=== PATIENT | female | born 1985 | race Caucasian/White ===

== ENCOUNTER 2021-09-03 09:34 | Observation (INO) ==
[2021-09-03] MEDS ORDERED: Isovue-370 500 ML BOTTLE IVP ONE (10:51)
[2021-09-03] MEDS ORDERED: Ondansetron 4 MG/2 ML VIAL IVP ONE (11:09)
[2021-09-03] MEDS ORDERED: GI Cocktail 40 ML EACH PO ONE (11:09)
[2021-09-03] MEDS ORDERED: 0.9 % Sodium Chloride 1,000 ML IVC ONE (11:09)
[2021-09-03 12:07] LABS: Basophils # 0.1 K/mcL (0.0-0.2); Basophils % 0.6 %; Eosinophils # 0.4 K/mcL (0.0-0.6); Eosinophils % 2.4 %; Hematocrit 45.7 % (35.3-44.9); Hemoglobin 15.1 g/dL (11.5-15.4); Immature Granulocytes % 0.3 % (0-4); Lymphocytes # 2.6 K/mcL (0.6-4.6); Lymphocytes % 16.3 %; Mean Corpuscular Hemoglobin 29.2 pg (28.0-33.3); Mean Corpuscular Volume 88.4 fL (83.0-100.0); Mean Platelet Volume 10.9 fL (9.4-12.4); Monocytes % 6.1 %; Neutrophils # 11.9 K/mcL (1.6-8.9); Platelet Count 341 K/mcL (140-400); Red Blood Count 5.17 M/mcL (3.82-4.97); Red Cell Distribution Width 13.6 % (11.5-14.5); Segmented Neutrophils % 74.3 %
[2021-09-03 12:21] LABS: Alanine Aminotransferase 9 Units/L (7-52); Albumin 4.7 g/dL (3.5-5.7); Albumin/Globulin Ratio 1.3 (1.1-2.2); Alkaline Phosphatase 64 Units/L (34-104); Amylase 63 Units/L (29-103); Aspartate Amino Transferase 13 Units/L (13-39); BUN/Creatinine Ratio 26 (6-26); Bilirubin,Indirect 0.3 mg/dL (0.0-1.0); Bilirubin,Total 0.3 mg/dL (0.3-1.0); Blood Urea Nitrogen 17 mg/dL (6-20); Calcium 10.5 mg/dL (8.6-10.3); Carbon Dioxide 28 mEq/L (23-29); Chloride 103 mEq/L (98-107); Globulin 3.6 g/dL (2.4-3.5); Glucose 85 mg/dL (70-105); Lipase 48 Units/L (11-82); Osmolality,Calculated 289 (280-300); Sodium 139 mEq/L (136-145); Total Protein 8.3 g/dL (6.4-8.9); eGFR For African Americans > 60 (> 60); eGFR For Non-African Americans > 60 (> 60)
[2021-09-03 12:47] LABS: Bilirubin,Urine Negative (Negative); Blood,Urine Negative (Negative); Clarity,Urine Clear (Clear); Color,Urine Light-Yellow (Yellow); Glucose,Urine (UA) Normal (Normal); Ketones,Urine Negative (Negative); Leukocyte Esterase,Urine Negative (Negative); Nitrite,Urine Negative (Negative); Protein,Urine Trace mg/dL (Neg-Trace); Specific Gravity,Urine > 1.030 (1.010-1.025); Urobilinogen,Urine Normal (Normal)
[2021-09-03] MEDS ORDERED: *HR* FentaNYL (PF) 100 MCG/2 ML VIAL IVP ONE (12:53)
[2021-09-03] MEDS ORDERED: *HR* OxyCODONE/APAP 5/325 TABLET PO PRN (16:17)
[2021-09-03] MEDS ORDERED: Ketorolac 30 MG/ML VIAL IVP PRN (16:17)
[2021-09-03] MEDS ORDERED: Ondansetron 4 MG/2 ML VIAL IVP PRN (16:17)
[2021-09-03] MEDS: 0.9 % Sodium Chloride 1,000 ML IVC SCH (20:25)
[2021-09-03] MEDS: cefOXitin 2,000 MG in 0.9 % Sodium Chloride 20 ML IVP SCH ×2 (20:25→22:13)
[2021-09-04] MEDS ORDERED: cefOXitin 2,000 MG in 0.9 % Sodium Chloride 20 ML IVP SCH ×3 (04:00→20:00)
[2021-09-04] MEDS: cefOXitin 2,000 MG in 0.9 % Sodium Chloride 20 ML IVP SCH ×3 (04:07→13:14)
[2021-09-04 05:26] LABS: Basophils # 0.1 K/mcL (0.0-0.2); Basophils % 0.9 %; Eosinophils # 0.4 K/mcL (0.0-0.6); Eosinophils % 5.5 %; Hematocrit 35.3 % (35.3-44.9); Hemoglobin 11.6 g/dL (11.5-15.4); Immature Granulocytes % 0.1 % (0-4); Lymphocytes # 2.9 K/mcL (0.6-4.6); Lymphocytes % 36.1 %; Mean Corpuscular HGB Conc 32.9 g/dL (31.6-35.5); Mean Corpuscular Hemoglobin 29.4 pg (28.0-33.3); Mean Corpuscular Volume 89.6 fL (83.0-100.0); Mean Platelet Volume 11.1 fL (9.4-12.4); Monocytes # 0.6 K/mcL (0.0-1.3); Monocytes % 7.9 %; Neutrophils # 3.9 K/mcL (1.6-8.9); Platelet Count 259 K/mcL (140-400); Red Blood Count 3.94 M/mcL (3.82-4.97); Red Cell Distribution Width 13.6 % (11.5-14.5); Segmented Neutrophils % 49.5 %; White Blood Count 7.9 K/mcL (4.3-11.1)
[2021-09-04 05:45] LABS: Albumin 3.6 g/dL (3.5-5.7); Albumin/Globulin Ratio 1.5 (1.1-2.2); Bilirubin,Direct 0.1 mg/dL (0.0-0.2); Bilirubin,Indirect 0.6 mg/dL (0.0-1.0); Bilirubin,Total 0.7 mg/dL (0.3-1.0); Globulin 2.4 g/dL (2.4-3.5)
[2021-09-04] MEDS ORDERED: Lidocaine -MPF 2% 5 ML VIAL ONE (10:09)
[2021-09-04] MEDS ORDERED: Lidocaine HCL 4 ML Topical Solution (Laryng-O-Jet Kit Sterile Pak) TP ONE (10:09)
[2021-09-04] MEDS ORDERED: *HR* Midazolam HCl 2 MG/2 ML VIAL ONE (10:09)
[2021-09-04] MEDS ORDERED: *HR* Rocuronium Bromide 50 MG/5 ML VIAL ONE (10:09)
[2021-09-04] MEDS ORDERED: Ondansetron 4 MG/2 ML VIAL ONE (10:09)
[2021-09-04] MEDS ORDERED: *HR* Propofol 200 MG/20 ML VIAL IVP ONE (10:09)
[2021-09-04] MEDS ORDERED: *HR* FentaNYL (PF) 100 MCG/2 ML VIAL ONE (10:09)
[2021-09-04] MEDS ORDERED: Ketamine HCL *QUVA* 50mg (1mL) SYRINGE ONE (10:09)
[2021-09-04] MEDS ORDERED: *HR* HYDROmorphone PF 0.5 MG/0.5 ML SYRINGE IVP PRN ×2 (10:34→13:11)
[2021-09-04] MEDS ORDERED: *HR* OxyCODONE Immed Rel 5 MG TABLET PO PRN ×2 (10:34→13:11)
[2021-09-04] MEDS ORDERED: *HR* Magnesium Sulfate 1 GM/2 ML VIAL ONE (10:52)
[2021-09-04] MEDS ORDERED: *HR* HYDROMORPHONE 2 MG/ML VIAL ONE (11:38)
[2021-09-04] MEDS ORDERED: Ketorolac 30 MG/ML VIAL ONE (11:54)
[2021-09-04] MEDS ORDERED: Ondansetron 4 MG/2 ML VIAL IVP PRN (13:11)
[2021-09-04] MEDS ORDERED: 0.9 % Sodium Chloride 1,000 ML IVC SCH (13:11)
[2021-09-04] MEDS ORDERED: Ketorolac 30 MG/ML VIAL IVP PRN (13:11)
[2021-09-04] MEDS ORDERED: *HR* OxyCODONE/APAP 5/325 TABLET PO PRN (13:11)
[2021-09-04 13:14] VITALS: TEMP 97.7
[2021-09-04] MEDS: 0.9 % Sodium Chloride 1,000 ML IVC SCH (13:14)
[2021-09-04 16:13] VITALS: BP 107/69; PULSE 69; O2SAT 99
== END 2021-09-04 17:46 | disposition home or self-care (01) ==
LOC: EMEROOARM 09:34 → 3BNU 09:34
PROVIDERS: ADMIT Surgery; ATTEND Surgery